=== PATIENT | male | born 1985 | race Caucasian/White ===

== ENCOUNTER 2017-12-15 08:55 | Emergency (ER) | payer BC ==
[2017-12-15 09:09] VITALS: BP 149/97
[2017-12-15] MEDS ORDERED: Ibuprofen TAB* 600 MG PO ONE (09:18)
--- NOTE | 2017-12-15 09:20 | UC ---
Knee Pain HPI - HPI Summary HPI Summary: 32 YO MALE AWOKE DURING THE NIGHT WITH MODERATE TO SEVERE RIGHT KNEE PAIN NO INJURY 4-7 DAYS AGO HAD BEEN WORKING ON HIS KNEES KNEE FEELS LIKE IT WILL BUCKLE NO SWELLING/NOT HOT/NO FEVER NO HX KNEE PROBLEMS - History of Current Complaint Chief Complaint: UCLowerExtremity Stated Complaint: KNEE PAIN Time Seen by Provider: 12/15/17 09:11 Hx Obtained From: Patient Onset/Duration: Gradual Onset, Lasting Hours Severity Initially: Moderate Severity Currently: Moderate Pain Intensity: 7 Pain Scale Used: 0-10 Numeric Character: Aching, Throbbing Aggravating Factor(s): Weight Bearing Alleviating Factor(s): Rest Associated Signs And Symptoms: Positive: Negative Able to Bear Weight: Yes - Allergies/Home Medications Allergies/Adverse Reactions: Allergies Allergy/AdvReac Type Severity Reaction Status Date / Time No Known Allergies Allergy Verified 12/15/17 09:05 Home Medications: Home Medications NK [No Home Medications Reported] 12/15/17 [History Confirmed 12/15/17] PMH/Surg Hx/FS Hx/Imm Hx Previously Healthy: Yes - Surgical History Surgical History: None - Family History Known Family History: Positive: Hypertension - Social History Alcohol Use: Daily Alcohol Amount: "a bunch daily Substance Use Type: None Smoking Status (MU): Never Smoked Tobacco Review of Systems Constitutional: Negative Skin: Negative Eyes: Negative ENT: Negative Respiratory: Negative Cardiovascular: Negative Gastrointestinal: Negative Genitourinary: Negative Motor: Negative Neurovascular: Negative Musculoskeletal: Arthralgia Neurological: Negative Psychological: Negative Is Patient Immunocompromised?: No All Other Systems Reviewed And Are Negative: Yes Physical Exam Triage Information Reviewed: Yes Appearance: Well-Appearing, No Pain Distress, Well-Nourished Vital Signs: Initial Vital Signs Temp 98.1 F 12/15/17 09:06 Pulse 101 12/15/17 09:06 Resp 18 12/15/17 09:06 BP 149/97 12/15/17 09:06 Pulse Ox 100 12/15/17 09:06 Vital Signs Reviewed: Yes ENT: Positive: Hearing grossly normal. Negative: Nasal congestion, Nasal drainage, Trismus, Muffled voice, Dental tenderness Neck: Positive: Supple, Nontender, No Lymphadenopathy Respiratory: Positive: Lungs clear, Normal breath sounds, No respiratory distress, No accessory muscle use Cardiovascular: Positive: RRR, No Murmur Musculoskeletal: Positive: ROM Intact, No Edema, Other: - ANTALGIC GAIT Neurological Exam: Normal Psychological Exam: Normal Skin Exam: Normal Diagnostics - Radiology No standard instances Xray Interpretation: No Acute Changes Radiology Interpretation Completed By: Radiologist Re-Evaluation - Re-Evaluation First Eval Re-Evaluation Time: 10:20 Change: Improved - PAIN DECREASED AFTER MOTRIN Knee Pain Course/Dx - Differential Dx/Diagnosis Provider Diagnoses: RIGHT KNEE PAIN OF UNCERTAIN CAUSE Discharge - Discharge Plan Condition: Stable Disposition: HOME Patient Education Materials: Knee Pain (ED) Forms: *Work Release Referrals: [facility] [Outside] - As Soon As Possible () [facility] [Outside] - If Needed (YOU CAN CALL THIS NUMBER FOR HELP FINDING A PRIMARY CARE PROVIDER) Additional Instructions: crutches with non wt bearing ice every couple of hours while awake ibuprofen 200mg 3-4 4x day with food as needed IF YOU DEVELOP KNEE REDNESS OR WARMTH GET RECHECKED HARMEET YOUR BP IS HIGH TODAY...PROBABLY DUE TO THE PAIN I SUGGEST YOU GET IT RECHECKED IN A FEW WEEKS Images Front/Back of Body, Lg (Bucks): 1 - ONLY TENDER LATERAL BORDER OF PATELLA/FROM/NO REDNESS/NO WARMTH/NO EFFUSION /FROM WITH STABLE JOINT
--- NOTE | 2017-12-15 09:49 | RAD ---
INDICATION: Atraumatic right knee pain COMPARISON: None TECHNIQUE: 4 view radiograph of the right knee. FINDINGS: The visualized bones are well-corticated and properly aligned. The joint spaces are properly maintained. There is no radiographic evidence of joint effusion. There is no acute fracture, dislocation or other focal bony abnormality. IMPRESSION: Normal knee radiograph as described above. If the patient's symptoms persist, follow-up imaging is recommended.
== END 2017-12-15 10:29 | disposition home or self-care (01) ==
LOC: UCEAST 08:55
DX: M25.561 Pain in right knee (principal)
CPT/HCPCS: 99203; A9270-GY; G0463

== ENCOUNTER 2018-03-23 09:10 | Emergency (ER) | payer BC ==
[2018-03-23 09:23] VITALS: BP 172/80
--- NOTE | 2018-03-23 09:44 | ED ---
Throat Pain/Nasal Congestion - HPI Summary HPI Summary: 32-year-old male presents with sore throat for the past day. 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 Denies any fevers. Denies any cough. denies any Sinus congestion. His pain is manageable. He hasn't taken anything for it. No medical conditions. He does not have a primary but will be getting one to follow up about blood pressure. He denies any chest pain shortness of breath or abdominal pain. No nausea vomiting. No headache. - History of Current Complaint Chief Complaint: UCGeneralIllness Time Seen by Provider: 03/23/18 09:14 - Allergies/Home Medications Allergies/Adverse Reactions: Allergies Allergy/AdvReac Type Severity Reaction Status Date / Time No Known Allergies Allergy Verified 03/23/18 09:24 PMH/Surg Hx/FS Hx/Imm Hx Endocrine/Hematology History: Denies: Hx Anticoagulant Therapy Cardiovascular History: Reports: Hx Hypertension - no medication Infectious Disease History: No Infectious Disease History: Denies: Traveled Outside the [place] in Last 30 Days - Family History Known Family History: Positive: Hypertension - Social History Alcohol Use: Daily Alcohol Amount: "a bunch daily Substance Use Type: Reports: None Smoking Status (MU): Never Smoked Tobacco Review of Systems Negative: Fever Positive: Sore Throat Negative: Chest Pain Negative: Shortness Of Breath All Other Systems Reviewed And Are Negative: Yes Physical Exam Triage Information Reviewed: Yes Vital Signs On Initial Exam: Initial Vitals Temp Pulse Resp BP Pulse Ox 99.4 F 119 20 172/80 97 03/23/18 09:17 03/23/18 09:17 03/23/18 09:17 03/23/18 09:17 03/23/18 09:17 Vital Signs Reviewed: Yes Appearance: Positive: Well-Appearing Skin: Positive: Warm, Dry Head/Face: Positive: Normal Head/Face Inspection Eyes: Positive: Normal, EOMI, MARY ANN, Conjunctiva Clear ENT: Positive: Pharyngeal erythema, TMs normal, Uvula midline, Other - soft palate symmetric. Negative: Tonsillar swelling, Tonsillar exudate, Trismus, Muffled voice Respiratory/Lung Sounds: Positive: Clear to Auscultation, Breath Sounds Present Cardiovascular: Positive: Normal, RRR Abdomen Description: Positive: Nontender, Soft Bowel Sounds: Positive: Present Musculoskeletal: Positive: Normal Neurological: Positive: Normal Psychiatric: Positive: Normal Diagnostics - Vital Signs Vital Signs Temp Pulse Resp BP Pulse Ox 03/23/18 09:17 99.4 F 119 20 172/80 97 - Laboratory Lab Results: Lab Results 03/23/18 Range/Units 09:26 Group A Strep Rapid Negative (Negative) Lab Statement: Any lab studies that have been ordered have been reviewed, and results considered in the medical decision making process. EENT Course/Dx - Course Course Of Treatment: 32-year-old male presents with sore throat for the past day. 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 Denies any fevers. Denies any cough. denies any Sinus congestion. His pain is manageable. He hasn't taken anything for it. No medical conditions. He does not have a primary but will be getting one to follow up about blood pressure. He denies any chest pain shortness of breath or abdominal pain. No nausea vomiting. No headache. On exam pharynx erythematous. Uvula midline. Soft palate symmetric. Strep negative. We will treat conservatively. Patient will follow with primary about blood pressure. Patient understands agrees with plan. - Differential Diagnoses Differential Diagnoses: Pharyngitis, Tonsilitis, URI/Bronchitis - Diagnoses Provider Diagnoses: Pharyngitis, Elevated blood pressure reading Discharge - Sign-Out/Discharge Documenting (check all that apply): Discharge/Admit/Transfer - Discharge Plan Condition: Good Disposition: HOME Patient Education Materials: Pharyngitis (ED) Referrals: [facility] [place] [facility] [Outside] Additional Instructions: Establish care with primary to follow up about blood pressure Take Tylenol or ibuprofen for pain every 6 hours Can gargle salt water Can use cough drops or products such as cloraseptic spray Return to ED if develop any new or worsening symptoms - Billing Disposition and Condition Condition: GOOD Disposition: HOME
== END 2018-03-23 09:56 | disposition home or self-care (01) ==
LOC: UCEAST 09:10
DX: J02.9 Acute pharyngitis, unspecified (principal); R03.0 Elevated blood-pressure reading, without diagnosis of hypertension
CPT/HCPCS: 87070; 87077; 87651; 99211; G0463

== ENCOUNTER → 2019-04-22 04:40 | Emergency (ER) | payer BC ==
[~2019-04-22 04:40] MED LIST: Amoxicillin/Clavulanate TAB* 875 MG PO ONE
--- NOTE | 2019-04-22 05:18 | ED ---
Bite Injury/Animal - HPI Summary HPI Summary: This pt is a 33 y/o male presenting to [facility] c/o dog bite to his right third digit about 1 hour CALL [facility]ENTER SPECIALIST today. Pt reports his two dogs were fighting and he got in between to separate them when one of them bit his finger. Patient owns both dogs. He notes he immediately irrigated his wound under running water for about 4-5 minutes. Denies fever. Denies any other complaints. His dog has his vaccinations UTD. - History of Current Complaint Chief Complaint: EDAnimalBite Stated Complaint: DOG BITE ON R MIDDLE FINGER PER PT Hx Obtained From: Patient Onset of Injury: Happened hours ago - 1, Still Present Type of Bite: Pet Hx of Bite: Provoked by: - got in between his 2 dogs fighting Has Animal Been Immunized?: Yes Severity Currently: Mild Pain Intensity: 2 Pain Scale Used: 0-10 Numeric Aggravating Factor(s): Nothing Alleviating Factor(s): Nothing Associated Signs And Symptoms: Negative: Fever - Allergies/Home Medications Allergies/Adverse Reactions: Allergies Allergy/AdvReac Type Severity Reaction Status Date / Time No Known Allergies Allergy Verified 03/23/18 09:24 PMH/Surg Hx/FS Hx/Imm Hx Endocrine/Hematology History: Denies: Hx Anticoagulant Therapy Cardiovascular History: Reports: Hx Hypertension - no medication - Immunization History Immunizations Up to Date: Yes Infectious Disease History: No Infectious Disease History: Denies: Traveled Outside the [place] in Last 30 Days - Family History Known Family History: Positive: Hypertension - Social History Alcohol Use: Daily Alcohol Amount: "a bunch daily Substance Use Type: Reports: None Smoking Status (MU): Never Smoked Tobacco Review of Systems Negative: Fever Cardiovascular: Negative Respiratory: Negative Gastrointestinal: Negative Skin: Other - POSITIVE: dog bite to right third digit All Other Systems Reviewed And Are Negative: Yes Physical Exam - Summary Physical Exam Summary: Appearance: Well-appearing, Well-nourished, lying in bed comfortable Skin: Warm, dry, no obvious rash. Right third digit has laceration of dog bite on palmar aspect of the middle phalanx. Superficial flat laceration on tip of the third finger with some swelling to the area. Eyes: sclera anicteric, no conjunctival pallor ENT: mucous membranes moist Neck: deferred Respiratory: No signs of respiratory distress Cardiovascular: Appears well perfused, pulses are nml Abdomen: deferred Musculoskeletal: Moving all 4 extremities without obvious discomfort Neurological: Awake and alert, mentation is normal, speech is fluent and appropriate Psychiatric: affect is normal, does not appear anxious or depressed Triage Information Reviewed: Yes Vital Signs On Initial Exam: Initial Vitals Temp Pulse Resp BP Pulse Ox 97.3 F 93 18 173/105 99 04/22/19 04:45 04/22/19 04:45 04/22/19 04:45 04/22/19 04:45 04/22/19 04:45 Vital Signs Reviewed: Yes Diagnostics - Vital Signs Vital Signs Temp Pulse Resp BP Pulse Ox 04/22/19 04:45 97.3 F 93 18 173/105 99 - Laboratory Lab Statement: Any lab studies that have been ordered have been reviewed, and results considered in the medical decision making process. Bite Injury Course/Dx - Course Assessment/Plan: Pt is a 33 y/o male presenting to [facility] c/o dog bite to his right third digit about 1 hour CALL CENTER SPECIALIST today. Pt reports his two dogs were fighting and he got in between to separate them when one of them bit his finger. Patient owns both dogs. Patient irrigated his finger CALL CENTER SPECIALIST and in the ED. His wound was dressed by the nurse. Pt will be discharged home with follow up from his PCP. Patient was given a prescription for Augmentin. He was given instructions to prevent infection of this wound, including cleaning and redressing his wound. Patient was advised to follow up with orthopedic surgeon if wound becomes very red, warm, and painful. - Diagnoses Provider Diagnosis: Dog bite Discharge - Sign-Out/Discharge Documenting (check all that apply): Patient Departure - Discharge home Patient Received Moderate/Deep Sedation with Procedure: No - Discharge Plan Condition: Stable Disposition: HOME Prescriptions: Amoxicillin/Clavulanate TAB* [Augmentin TAB 875*] 875 mg PO BID #10 tab Patient Education Materials: Animal Bite (ED) Referrals: Mau Gomez MD [Medical Doctor] - If Needed Additional Instructions: Clean and redress the wound 2-3 times a day for the first 4-5 days, until it scabs over. The wound will need to be covered with a dressing until it scabs over and dries up. Take the antibiotic as prescribed. This will all help prevent infection of this wound, but if it does start to look very red, warm and painful come in or see the orthopedic surgeon right away. - Billing Disposition and Condition Condition: STABLE Disposition: Home - Attestation Statements Document Initiated by Roberto: Yes Documenting Lakshmiibelicia: Zakiya Wang Provider For Whom Roberto is Documenting (Include Credential): Alejandro Basurto MD Scribe Attestation: Zakiya Ching, scribed for Alejandro Basurto MD on 04/22/19 at 0716. Scribe Documentation Reviewed: Yes Provider Attestation: The documentation as recorded by the Zakiya ray accurately reflects the service I personally performed and the decisions made by me, Alejandro Basurto MD Status of Scribe Document: Viewed
[2019-04-22 05:42] VITALS: BP 170/99
== END | disposition home or self-care (01) ==
LOC: ED 04:40
DX: S61.252A Open bite of right middle finger without damage to nail, initial encounter (principal); I10 Essential (primary) hypertension; W54.0XXA Bitten by dog, initial encounter
CPT/HCPCS: 99282; A9270-GY